=== PATIENT | male | born 1950 | race Caucasian/White ===

== ENCOUNTER → 2018-02-23 09:19 | Outpatient (CLI) | payer MEDICARE, OTHER, SELFPAY ==
[2018-02-23 11:06] LABS: Alanine Aminotransferase 21 IU/L (21-72); Albumin 4.4 g/dL (3.5-5.0); Albumin Globulin Ratio 1.5 (1.0-2.8); Alkaline Phosphatase 70 U/L (38-126); Aspartate Aminotransferase 18 IU/L (17-59); Bilirubin Total 0.9 mg/dL (0.2-1.3); Blood Urea Nitrogen 13 mg/dL (9-20); Calcium 9.7 mg/dL (8.4-10.2); Carbon Dioxide 22 mmol/L (22-32); Chloride 108 mmol/L (98-107); Cholesterol 130 mg/dL (140-199); Estimated Glomerular Filt Rate > 60.0 mL/min (>60); Glucose 118 mg/dL (80-110); HDL Cholesterol 44 mg/dL (40-60); HEMOLYSIS < 15 (0-50); LDL Cholesterol Calculated 50 mg/dL (<100); Potassium 4.1 mmol/L (3.4-5.1); Sodium 146 mmol/L (137-145); Total Protein 7.4 g/dL (6.3-8.2); Triglycerides 181 mg/dL (35-150)
[2018-02-23 11:12] LABS: Hemoglobin A1C% w Est Avg Glu 5.5 % (4.0-6.0)
[2018-02-23 12:08] LABS: Free T4, Direct Thyroxine 1.39 ng/dL (0.78-2.19)
[2018-02-23 12:22] LABS: Thyroid Stimulating Hormone 0.55 uIU/mL (0.47-4.68)
== END ==
PROVIDERS: PCP Internal Medicine; Visit Provider Internal Medicine
DX: E11.9 Type 2 diabetes mellitus without complications (principal); E78.5 Hyperlipidemia, unspecified; I10 Essential (primary) hypertension; E03.9 Hypothyroidism, unspecified
CPT/HCPCS: 36415; 80053; 80061; 83036; 84439; 84443

== ENCOUNTER 2018-06-06 17:53 | Emergency (ER) | payer MEDICARE, OTHER, SELFPAY ==
[2018-06-06 18:23] VITALS: BP 200/91; PULSE 67; RESP 14; TEMP 36.6; O2SAT 96; BMI 32.6
--- NOTE | 2018-06-06 19:01 | ED.SKABFB ---
HPI - Skin/Abscess/Foreign Bdy <BALWNIDER Cooley - Last Filed: 06/06/18 22:16> General Chief complaint: Skin/Abscess/Foreign Body Stated complaint: laceration to thumb right hand Time Seen by Provider: 06/06/18 18:47 Source: patient Mode of arrival: ambulatory Limitations: no limitations History of Present Illness HPI narrative: 68-year-old male with a history of hypertension is a former smoker here for complaint of laceration to his right thumb that he obtain earlier this evening. He was using a mandolin and accidentally caught it with his right thumb causing a portion of the skin to the right thumb to come off. He reports that he has had difficulty in controlling bleeding since this timeframe. He denies being on any blood thinners. He states that his last tetanus was a couple months ago. No other injuries or concerns at this time. MD complaint: laceration Related Data Home Medications Medication Instructions Recorded Confirmed NITROGLYCERIN (#NITROSTAT) 0.4 mg SUBLINGUAL PRN #0 04/20/11 04/05/18 aspirin 81 mg PO QDAY #0 11/07/12 04/05/18 Previous Rx's Medication Instructions Recorded insulin glargine [Lantus U-100 0 unit SQ SEE INSTRUCTIONS #1 ml 04/09/17 Insulin] simvastatin [Zocor] 80 mg PO Q DAY #90 tab 06/21/17 levothyroxine 125 mcg tablet 125 mcg PO QAM #90 tab 09/14/17 lisinopril 40 mg tablet 40 mg PO QDAY #90 tab 09/14/17 carvedilol 12.5 mg tablet 12.5 mg PO BID #180 tab 11/30/17 BD Pen Needle Short [id number] 1 units SUBCUT HS #100 units 12/02/17 polyethylene glycol 3350 17 gm PO QDAY #1 bot 02/10/18 indomethacin ER 75 mg 75 mg PO BIDP #180 cap 04/18/18 capsule,extended release metformin 1,000 mg tablet 1,000 mg PO BIDCC #180 tab 04/25/18 oxycodone-acetaminophen 5 mg-325 See Label Instructions PO Q6HP PRN 05/03/18 mg tablet #120 tab Allergies Allergy/AdvReac Type Severity Reaction Status Date / Time No Known Drug Allergies Allergy Verified 06/06/18 18:26 Review of Systems <BALWINDER Cooley - Last Filed: 06/06/18 22:16> Constitutional Denies chills, Denies fever(s), Denies lethargy and Denies weakness Eyes Denies change in vision, Denies eye discharge, Denies irritation and Denies loss of vision ENT Ears, Nose, Mouth, and Throat: Denies change in voice, Denies neck pain and Denies sore throat Cardiovascular Denies chest pain, Denies irregular heart rhythm, Denies lightheadedness, Denies palpitations, Denies dyspnea, Denies dyspnea on exertion and Denies orthopnea Respiratory Denies cough, Denies dyspnea, Denies dyspnea on exertion and Denies wheezing Gastrointestinal Gastrointestinal: Denies abdominal pain, Denies change in bowel habits, Denies diarrhea, Denies nausea and Denies vomiting Genitourinary Denies hematuria, Denies flank pain, Denies urinary incontinence and Denies urinary urgency Musculoskeletal Denies neck pain Comments: Laceration left thumb Integumentary/Breasts Denies pruritus, Denies erythema, Denies rash and Denies wounds Neurologic Denies confusion, Denies loss of vision and Denies weakness Psychiatric Denies anxiety, Denies confusion, Denies depression, Denies homicidal ideation and Denies suicidal ideation Endocrine Denies palpitations Hematologic/Lymphatic Denies easy bruising Allergic/Immunologic Denies wheezing Exam <BALWINDER Cooley - Last Filed: 06/06/18 22:16> Initial Vital Signs Initial Vital Signs: Vital Signs Temperature 97.8 F 06/06/18 18:23 Pulse Rate 67 06/06/18 18:23 Respiratory Rate 14 06/06/18 18:23 Blood Pressure 200/91 H 06/06/18 18:23 Pulse Oximetry 96 06/06/18 18:23 Const General: cooperative and well developed Nutritional Appearance: well nourished Orientation: alert, awake, oriented x3 and not confused HENMT Mouth: oral mucosae normal and moist mucous membranes Eyes Conjunctivae: conjunctivae normal Sclera: sclerae normal Pupils: PERRL EOM: EOM intact bilaterally Resp Effort & Inspection: normal respiratory effort, able to speak in complete sentences, no respiratory distress and no use of accessory muscles Auscultation: clear to auscultation bilaterally, no rales, no rhonchi and no wheezes Cardio Rate: regular rate Rhythm: regular rhythm Heart Sounds: no click, no gallops, no murmurs and no rubs GI Inspection: non-distended Palpation: soft, no hepatosplenomegaly, No guarding, No pulsatile mass and No tender Auscultation: normal bowel sounds General: No CVA tenderness Back/Spine/Pelvis Back: No CVA tenderness Cervical Spine: cervical ROM normal and No pain with cervical ROM Thoracic/Lumbar Spine: thoracic and lumbar spine normal to inspection Skin General: no rashes or lesions noted, No jaundice and No petechiae Neuro General: alert, oriented x3, gait normal and no focal motor deficits Speech: speech normal Extrem Other: 3 cm x 1.5 cm avulsion laceration to the radial aspect of the right thumb. Skin was completely removed to this area. Distal sensation is intact. Distal range of motion is intact. Bleeding controlled with direct pressure. Distal cap refill less than 2 sec. <Tamika Rhodes DO - Last Filed: 06/07/18 03:00> Initial Vital Signs Initial Vital Signs: Vital Signs Temperature 97.8 F 06/06/18 18:23 Pulse Rate 67 06/06/18 18:23 Respiratory Rate 14 06/06/18 18:23 Blood Pressure 200/91 H 06/06/18 18:23 Pulse Oximetry 96 06/06/18 18:23 Course <BALWINDER Cooley - Last Filed: 06/06/18 22:16> Vital Signs - 8 hr 06/06/18 19:07 06/06/18 19:45 06/06/18 20:42 Temperature 98.1 F Pulse Rate 64 76 64 Respiratory Rate 20 21 16 Blood Pressure 198/97 H Blood Pressure [Left Arm] 199/90 H 100/42 L Pulse Oximetry 98 97 100 <Tamika Rhodes DO - Last Filed: 06/07/18 03:00> Vital Signs - 8 hr 06/06/18 19:07 06/06/18 19:45 06/06/18 20:42 Temperature 98.1 F Pulse Rate 64 76 64 Respiratory Rate 20 21 16 Blood Pressure 198/97 H Blood Pressure [Left Arm] 199/90 H 100/42 L Pulse Oximetry 98 97 100 MDM - Skin/Abscess/Foreign Bdy <BALWINDER Cooley - Last Filed: 06/06/18 22:16> MDM Narrative Medical decision making narrative: Patient is not on blood thinners however had difficulty in getting a bleeding to stop to the right thumb. Wound was dressed with Surgicel and a dressing which was able to obtain hemostasis. Wound was dressed with gauze to gauze and a splint. He is instructed to be joyce with a thumb to avoid dislodging the clot. He is referred to wound care for further evaluation. Patient call wound care tomorrow to schedule follow-up appointment in the next couple of days. The patient's blood pressure was elevated today. He states he did take his blood pressure as medications as prescribed. He is referred back to primary care provider for further evaluation for blood pressure for any worsening symptoms return emergency room. Discharge Plan Departure Patient Disposition: Home Clinical Impression: Elevated blood pressure reading, Avulsion of skin of right thumb Discharge Date/Time: 06/06/18 20:43 Interventions: ED Discharge Assessment Last Done: 06/06/18 20:42 Instructions: DI for Avulsion Laceration (Not Requiring Sutures) Activity Restrictions/Additional Instructions: Avulsion laceration right thumb was dressed with a clotting material to help stop the bleeding. Follow up with wound Care for evaluation wound to the thumb call the office tomorrow to schedule appointment here in the next couple days. Phone number is [phone] Use [id number] Tylenol as needed for any discomfort. Blood pressure was elevated today. Follow up with primary care provider for re-evaluation for elevated blood pressure. Take blood pressure medications as prescribed. For any worsening symptoms return to the emergency room. Prescriptions: No Action NITROGLYCERIN (#NITROSTAT) 0.4 mg Sublingual PRN Qty: 0 RF: 0 aspirin 81 MG tablet,delayed release (DR/EC) 81 mg PO QDAY Qty: 0 RF: 0 insulin glargine [Lantus U-100 Insulin] 100 UNIT/1 ML solution SQ SEE INSTRUCTIONS Qty: 1 RF: 1 simvastatin [Zocor] 80 MG tablet 80 mg PO Q DAY Qty: 90 RF: 3 levothyroxine [Synthroid] 125 mcg tablet 125 mcg PO QAM Qty: 90 RF: 3 lisinopril 40 mg tablet 40 mg PO QDAY Qty: 90 RF: 3 carvedilol [Coreg] 12.5 mg tablet 12.5 mg PO BID Qty: 180 RF: 3 BD Pen Needle Short [id number] 1 units SUBCUT HS Qty: 100 RF: 11 polyethylene glycol 3350 17 gram powder in packet 17 gm PO QDAY Qty: 1 RF: 11 indomethacin 75 mg capsule, extended release 75 mg PO BIDP Qty: 180 RF: 1 metformin [Glucophage] 1,000 mg tablet 1,000 mg PO BIDCC Qty: 180 RF: 1 oxycodone-acetaminophen [Percocet] 5-325 mg tablet See Label Instructions PO Q6HP PRN (Reason: pain) Qty: 120 RF: 0 Referrals: Ari Mueller MD [Primary Care Provider] - <Tamika Rhodes DO - Last Filed: 06/07/18 03:00> Cosign ED Attending Coscamachoature Attestation: I was immediately available in the department for consultation. Documentation has been reviewed. I agree with assessment and plan.
[2018-06-06 19:07] VITALS: BP 199/90; PULSE 64; RESP 20; O2SAT 98
[2018-06-06 19:45] VITALS: BP 100/42; PULSE 76; RESP 21; O2SAT 97
[2018-06-06 20:42] VITALS: BP 198/97; PULSE 64; RESP 16; TEMP 36.7; O2SAT 100
== END 2018-06-06 20:43 | disposition home or self-care (01) ==
PROVIDERS: Emergency Provider Nurse Practitioner Family; PCP Internal Medicine
DX: S61.011A Laceration without foreign body of right thumb without damage to nail, initial encounter (principal); R03.0 Elevated blood-pressure reading, without diagnosis of hypertension; W26.8XXA Contact with other sharp object(s), not elsewhere classified, initial encounter
CPT/HCPCS: 99283

== ENCOUNTER 2018-06-08 15:22 | Emergency (ER) | payer MEDICARE, OTHER, SELFPAY ==
[2018-06-08 15:26] VITALS: BP 240/110; PULSE 68; RESP 20; TEMP 36.2; O2SAT 97
[2018-06-08 15:47] VITALS: BP 229/86; PULSE 64; RESP 14; O2SAT 99
--- NOTE | 2018-06-08 15:57 | PC.NURSE ---
Discussed htn w/ Dr. Sullivan. Pt has no complaints r/t hypertension. Denies headache, cp/sob. No neuro changes. Pt states he has appt w/ Dr. Mueller but not until July. Called Dr. Mueller's office and spoke w/ Jose De Jesus BANGURA. Appt natividad am 0915 check in w/ Dr. Mueller.
[2018-06-08 16:02] VITALS: BP 245/92; PULSE 70
--- NOTE | 2018-06-08 16:18 | ED_ITS ---
HPI - Extremity Injury (Upper) General Chief Complaint: Extremity Injury, Upper Stated Complaint: RT THUMB IS THROBBING S/P INJURY Time Seen by Provider: 06/08/18 15:34 Source: patient and family Mode of arrival: ambulatory Limitations: no limitations History of Present Illness HPI narrative: Patient complains of throbbing pain to his right thumb after avulsion injury 2 days ago. Patient states that he takes oxycodone for chronic back pain, and was told to just take Tylenol on top of this for his thumb. Patient states this has not been managing the pain well and that he has been having severe pain in the thumb. No further bleeding since his ED visit on the . Patient did attempt to go to wound Care Clinic, but had a negative interaction with the front office staff after he stated that he could not fill out all the paperwork with his left hand. Patient states he has a checkup appointment with his primary doctor on August 01, but feels he needs to be seen sooner than that. Patient is mainly here in the ED for pain. He denies any chest pain, shortness of breath, headache, visual changes, dizziness, or any other complaints. He was not injured in any other way at the time of thumb injury. Related Data Home Medications Medication Instructions Recorded Confirmed nitroglycerin [Nitrostat] 0.4 mg SUBLINGUAL Q5-15M #0 04/20/11 06/08/18 aspirin 81 mg PO QDAY #0 11/07/12 06/08/18 gabapentin 300 mg PO DAILY 06/08/18 06/08/18 indomethacin 75 mg PO BID 06/08/18 06/08/18 oxycodone-acetaminophen [Percocet] 1 - 2 tab PO Q6H PRN 06/08/18 06/08/18 Previous Rx's Medication Instructions Recorded insulin glargine [Lantus U-100 0 unit SQ SEE INSTRUCTIONS #1 ml 04/09/17 Insulin] simvastatin [Zocor] 80 mg PO Q DAY #90 tab 06/21/17 levothyroxine 125 mcg tablet 125 mcg PO QAM #90 tab 09/14/17 lisinopril 40 mg tablet 40 mg PO QDAY #90 tab 09/14/17 carvedilol 12.5 mg tablet 12.5 mg PO BID #180 tab 11/30/17 BD Pen Needle Short [id number] 1 units SUBCUT HS #100 units 12/02/17 polyethylene glycol 3350 17 gm PO QDAY #1 bot 02/10/18 metformin 1,000 mg tablet 1,000 mg PO BIDCC #180 tab 04/25/18 hydromorphone 2 mg PO Q4-6H PRN #14 tab 06/08/18 Allergies Allergy/AdvReac Type Severity Reaction Status Date / Time No Known Drug Allergies Allergy Verified 06/06/18 18:26 Review of Systems Constitutional Denies chills, Denies fever(s), Denies lethargy and Denies weakness Eyes Denies change in vision, Denies eye discharge, Denies irritation and Denies loss of vision ENT Ears, Nose, Mouth, and Throat: Denies change in voice, Denies neck pain and Denies sore throat Cardiovascular Denies chest pain, Denies irregular heart rhythm, Denies lightheadedness, Denies palpitations, Denies dyspnea, Denies dyspnea on exertion and Denies orthopnea Respiratory Denies cough, Denies dyspnea, Denies dyspnea on exertion and Denies wheezing Gastrointestinal Gastrointestinal: Denies abdominal pain, Denies change in bowel habits, Denies diarrhea, Denies nausea and Denies vomiting Genitourinary Denies hematuria, Denies flank pain, Denies urinary incontinence and Denies urinary urgency Musculoskeletal Denies neck pain Comments: Right thumb pain Integumentary/Breasts Denies pruritus, Denies erythema, Denies rash and Denies wounds Neurologic Denies confusion, Denies loss of vision and Denies weakness Psychiatric Denies anxiety, Denies confusion, Denies depression, Denies homicidal ideation and Denies suicidal ideation Endocrine Denies palpitations Hematologic/Lymphatic Denies easy bruising Allergic/Immunologic Denies wheezing [facility] Medical History Hyperlipidemia (Chronic) DM2 (diabetes mellitus, type 2) (Chronic 04/20/11) Hypertension, essential, benign (Chronic 04/20/11) 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) Hypothyroidism (acquired) (Chronic 04/20/11) Degeneration of intervertebral disc of lumbar region (Chronic 04/05/15) Surgical History Stented coronary artery (Inactive ~1999) Anesthesia (Resolved) History of ankle surgery (Resolved) History of cholecystectomy (Resolved) History of surgery (Resolved) History of uvulopalatopharyngoplasty (Resolved) Status post excision of acoustic neuroma (Resolved ~1988) Social History Smoking Status: Former smoker Exam Initial Vital Signs Initial Vital Signs: Vital Signs Temperature 97.1 F L 06/08/18 15:26 Pulse Rate 68 06/08/18 15:26 Respiratory Rate 20 06/08/18 15:26 Blood Pressure 240/110 H 06/08/18 15:26 Pulse Oximetry 97 06/08/18 15:26 Const General: cooperative and well developed Nutritional Appearance: well nourished Orientation: alert, awake, oriented x3 and not confused HENMT Head: normocephalic and atraumatic Ears: external ears normal and TM's normal bilaterally Nose: external nose normal and No nasal discharge Face and sinus: sinuses nontender, face symmetric, no sinus tenderness and No dry mucous membranes Mouth: oral mucosae normal and moist mucous membranes Teeth and gingiva: dentition normal Throat: tonsils normal and uvula midline Eyes General: appearance normal, both eyes and all related structures Eyelids: eyelids normal Conjunctivae: conjunctivae normal Sclera: sclerae normal Pupils: PERRL EOM: EOM intact bilaterally Neck Neck: normal visual inspection, trachea midline, No lymphadenopathy, No midline deformity and No JVD Lymphatic: No lymphedema Chest Chest: normal inspection of the chest Resp Effort & Inspection: normal respiratory effort, able to speak in complete sentences, no respiratory distress and no use of accessory muscles Auscultation: clear to auscultation bilaterally, no rales, no rhonchi and no wheezes Cardio Rate: regular rate Rhythm: regular rhythm Heart Sounds: no click, no gallops, no murmurs and no rubs Pulses: normal peripheral pulses Back/Spine/Pelvis Back: No CVA tenderness Cervical Spine: cervical ROM normal and No pain with cervical ROM Thoracic/Lumbar Spine: thoracic and lumbar spine normal to inspection Skin General: no rashes or lesions noted, No jaundice and No petechiae Neuro General: alert, oriented x3, gait normal and no focal motor deficits Speech: speech normal Extrem General: full ROM, no clubbing, cyanosis or edema, no pedal edema and no calf tenderness Other: Patient's right thumb bandage is clean dry and intact. There is no fresh blood soaking through the bandage. Upon removing the bandage, the thumb is found to be without edema or erythema. Patient is able to move at the MCP joint. No streaking extending from the thumb proximally. Psych Appearance: well kempt Mental Status: mental status grossly normal Attitude: cooperative Thought Content: normal and suicidality Judgment: judgment good Course Course Narrative: Patient's wound was redressed, and he was treated symptomatically with Dilaudid IM. He was found to have repeated a hypertensive blood pressure readings in the emergency department, but he was asymptomatic, and such, he did not meet criteria for hypertensive emergency. Nursing staff did call his primary care physician's office, and set up an appointment for tomorrow morning the patient to follow up. Wound care follow-up will be arranged from there. Orders Ordered: Discontinued Medications Hydromorphone HCl (Dilaudid) 2 mg IM Q4H PRN PRN Reason: Pain, Severe (7-10) Vital Signs - 8 hr 06/08/18 15:26 06/08/18 15:47 06/08/18 16:02 Temperature 97.1 F L Pulse Rate 68 64 70 Respiratory Rate 20 14 Blood Pressure 240/110 H Blood Pressure [Left Arm] 229/86 H 245/92 H Pulse Oximetry 97 99 06/08/18 16:30 06/08/18 17:06 Temperature Pulse Rate 67 Respiratory Rate 20 Blood Pressure 193/94 H Blood Pressure [Left Arm] 207/84 H Pulse Oximetry 95 MDM - Extremity Injury (Upper) Medical Records Attestation: I reviewed the patient's medical records. Discharge Plan Departure Patient Disposition: Home Clinical Impression: Avulsion of skin of right thumb, Elevated blood pressure reading Discharge Date/Time: 06/08/18 17:06 Interventions: ED Discharge Assessment Last Done: 06/08/18 17:06 Instructions: DI for High Blood Pressure, DI for Avulsion Laceration (Not Requiring Sutures) Activity Restrictions/Additional Instructions: An appointment has been made for you for [address] Mueller's office. Please follow up with him at this appointment about your blood pressure , as well as getting reinstated with Wound Care Clinic for follow-up of your thumb wound. You may take the hydromorphone on top of the Percocet that you are already taking, to help with further pain. Please leave the dressing in place until you are seen by the wound care clinic. Prescriptions: New hydromorphone 2 mg tablet 2 mg PO Q4-6H PRN (Reason: pain) Qty: 14 RF: 0 No Action nitroglycerin [Nitrostat] 0.4 mg Tablet, Sublingual 0.4 mg SUBLINGUAL Q5-15M Qty: 0 RF: 0 aspirin 81 MG tablet,delayed release (DR/EC) 81 mg PO QDAY Qty: 0 RF: 0 insulin glargine [Lantus U-100 Insulin] 100 UNIT/1 ML solution SQ SEE INSTRUCTIONS Qty: 1 RF: 1 simvastatin [Zocor] 80 MG tablet 80 mg PO Q DAY Qty: 90 RF: 3 levothyroxine [Synthroid] 125 mcg tablet 125 mcg PO QAM Qty: 90 RF: 3 lisinopril 40 mg tablet 40 mg PO QDAY Qty: 90 RF: 3 carvedilol [Coreg] 12.5 mg tablet 12.5 mg PO BID Qty: 180 RF: 3 BD Pen Needle Short [id number] 1 units SUBCUT HS Qty: 100 RF: 11 polyethylene glycol 3350 17 gram powder in packet 17 gm PO QDAY Qty: 1 RF: 11 metformin [Glucophage] 1,000 mg tablet 1,000 mg PO BIDCC Qty: 180 RF: 1 gabapentin 300 mg capsule 300 mg PO DAILY RF: 0 oxycodone-acetaminophen [Percocet] 5-325 mg tablet 1 - 2 tab PO Q6H PRN (Reason: pain) RF: 0 indomethacin 75 mg capsule, extended release 75 mg PO BID RF: 0 Referrals: Ari Mueller MD [Primary Care Provider] -
[2018-06-08 16:30] VITALS: BP 207/84; PULSE 67; O2SAT 95
[2018-06-08 17:06] VITALS: BP 193/94; RESP 20
== END 2018-06-08 17:06 | disposition home or self-care (01) ==
PROVIDERS: Emergency Provider Emergency Medicine; PCP Internal Medicine
DX: S61.011A Laceration without foreign body of right thumb without damage to nail, initial encounter (principal); R03.0 Elevated blood-pressure reading, without diagnosis of hypertension
CPT/HCPCS: 99283

== ENCOUNTER → 2018-07-29 08:08 | Outpatient (CLI) | payer MEDICARE, OTHER, SELFPAY ==
[2018-07-29 09:11] LABS: Hemoglobin A1C% w Est Avg Glu 5.3 % (4.0-6.0)
[2018-07-29 09:37] LABS: Alanine Aminotransferase 17 IU/L (21-72); Albumin 4.4 g/dL (3.5-5.0); Albumin Globulin Ratio 1.4 (1.0-2.8); Alkaline Phosphatase 84 U/L (38-126); Aspartate Aminotransferase 15 IU/L (17-59); Bilirubin Total 0.4 mg/dL (0.2-1.3); Blood Urea Nitrogen 22 mg/dL (9-20); Calcium 9.5 mg/dL (8.4-10.2); Carbon Dioxide 19 mmol/L (22-32); Chloride 110 mmol/L (98-107); Cholesterol 131 mg/dL (140-199); Estimated Glomerular Filt Rate > 60.0 mL/min (>60); Globulin 3.2 g/dL (1.7-4.1); Glucose 128 mg/dL (80-110); HDL Cholesterol 43 mg/dL (40-60); HEMOLYSIS < 15 (0-50); LDL Cholesterol Calculated 61 mg/dL (<100); Potassium 4.1 mmol/L (3.4-5.1); Sodium 142 mmol/L (137-145); Total Protein 7.6 g/dL (6.3-8.2); Triglycerides 135 mg/dL (35-150)
== END ==
PROVIDERS: PCP Internal Medicine; Visit Provider Internal Medicine
DX: E03.9 Hypothyroidism, unspecified (principal); E11.9 Type 2 diabetes mellitus without complications; E78.5 Hyperlipidemia, unspecified; I10 Essential (primary) hypertension
CPT/HCPCS: 36415; 80053; 80061; 83036

== ENCOUNTER → 2019-02-17 08:13 | Outpatient (CLI) | payer MEDICARE, OTHER, SELFPAY ==
[2019-02-17 09:10] LABS: Hemoglobin A1C% w Est Avg Glu 5.1 % (4.0-6.0)
[2019-02-17 10:12] LABS: Alanine Aminotransferase 15 IU/L (21-72); Albumin 4.1 g/dL (3.5-5.0); Albumin Globulin Ratio 1.5 (1.0-2.8); Alkaline Phosphatase 81 U/L (38-126); Aspartate Aminotransferase 18 IU/L (17-59); Bilirubin Total 0.6 mg/dL (0.2-1.3); Blood Urea Nitrogen 22 mg/dL (9-20); Calcium 9.7 mg/dL (8.4-10.2); Carbon Dioxide 24 mmol/L (22-32); Chloride 108 mmol/L (98-107); Estimated Glomerular Filt Rate > 60.0 mL/min (>60); Globulin 2.8 g/dL (1.7-4.1); Glucose 76 mg/dL (80-110); HEMOLYSIS < 15 (0-50); Potassium 4.5 mmol/L (3.4-5.1); Sodium 143 mmol/L (137-145); Total Protein 6.9 g/dL (6.3-8.2)
== END ==
PROVIDERS: PCP Internal Medicine; Visit Provider Internal Medicine
DX: E11.9 Type 2 diabetes mellitus without complications (principal); E78.5 Hyperlipidemia, unspecified; I10 Essential (primary) hypertension
CPT/HCPCS: 36415; 80053; 83036